=== PATIENT | female | born 2000 | race Caucasian/White ===

== ENCOUNTER 2023-11-06 15:49 | Emergency (ER) | payer OTHER, SELFPAY ==
[2023-11-06 15:58] VITALS: BP 134/81
--- NOTE | 2023-11-06 16:56 | ED.GENMED ---
History of Present Illness
General
Chief Complaint: Jaw Pain
Source: patient
Time Seen by Provider: 11/06/23 16:38
History of Present Illness
History of Present Illness:
23-year-old female with no significant past medical history presenting to the emergency department to be evaluated after she went to urgent care with pain to her left jaw stating it did not feel as if she were able to open it fully and thought that
it might be dislocated. Patient states that she merely just woke up with the pain and cannot think of anything that may have precipitated the pain. Patient states that while at the urgent care they did try and put the jaw back into place but were
concerned that she was still dislocated so sent her to the ER for further evaluation. Patient does note that she has had left-sided jaw pain intermittently for a while but has never followed up with anybody for this as it is often times resolved
after a day or so.
Past History
Past History
ED Past Medical History: None
ED Past Surgical History: None
Social History
Tobacco: Non-smoker
Alcohol: None
Drug: None
Personal: Single
Living: with family
Review of Systems
Review of Systems
All Other Systems: ROS reviewed and negative except as documented in HPI and ROS
Phy Exam
Physical Exam
Physical Exam:
GENERAL: Alert , in no apparent distress
EYE: conjunctiva clear
Head: Normocephalic atraumatic
NECK: Supple,
ENT: mmm. Patient is able to open and close jaw as well as move jaw [id number] without much difficulty. She is able to hold a tongue depressor with her mouth closed and not allow me to pull the tongue depressor out. No deformities at the TMJ
noted. No lymphadenopathy. Good dentition overall, no dental caries or disruption to the enamel
LUNGS: no acute respiratory distress
NEUROLOGICAL: Alert and oriented
SKIN: Warm and dry, skin intact.
MUSCULOSKELETAL: well perfused.
PSYCH: Normal and appropriate interaction.
Scores
Heart Failure Risk
Heart Failure Risk Score: Not Applicable
Heart Score for Chest Pain Patients
STEMI patient?: Not applicable
Withdrawal Assessment of Alcohol
Withdrawal Assessment Completed?: Not applicable
Course
Vital Signs
Initial and Last Documented VS:
Initial Vital Signs
Temp Pulse Resp BP Pulse Ox
98.4 F 85 18 134/81 100
11/06/23 15:58 11/06/23 15:58 11/06/23 15:58 11/06/23 15:58 11/06/23 15:58
Last Documented Vital Signs
Temp Pulse Resp BP Pulse Ox
98.4 F 85 18 134/81 100
11/06/23 15:58 11/06/23 15:58 11/06/23 15:58 11/06/23 15:58 11/06/23 15:58
MDM/Problems Addressed
Differential Diagnosis Includes:
Masseter muscle strain, jaw subluxation, jaw dislocation, dental abscess
MDM/Problems Addressed:
23-year-old female presenting to the ER with left-sided jaw pain upon awakening, felt as if she were unable to open the left side of her mouth, went to urgent care who felt patient could potentially have a jaw dislocation which is why they sent the
patient to the ER. Based off examination I do not have concern for dislocation but discussed with patient and mother that if is possible that the maneuvers they did at urgent care may have reduced the dislocation or subluxation if in fact this were
present. I suspect patient's continued symptoms likely caused a masseter muscle strain which is the cause for patient's continued symptoms. Advised NSAIDs as needed for pain. Since this has been a somewhat ongoing issue I also advised patient to
follow-up with dentist. I also advised to avoid any heavy or to chew proteins or anything that would require the patient to open her jaw significantly. Stable for discharge home.
*Pulse Oximetry
Patient hypoxic: no
*Critical Care Note
Total Time (30-74mins, 75-104mins- exclusive of procedures): Not Applicable
ED Attending Note
-
Portions of this chart may have been created with voice recognition software.� Occasional wrong word or��sound alike� substitutions may have occurred due to the inherent limitations of voice recognition software.
Discharge Plan
Departure
Patient Disposition: Home (Routine Discharge)
Date of Disposition: 11/06/23
Time of Disposition: 16:57
Patient with high blood pressure during this ER visit?: No
Discharge Problem:
Jaw pain
Instructions: Temporomandibular Joint (TMJ) Disorders (DC)
Interventions
Interventions:
*Risk Screen - Suicide Last Done: 11/06/23 15:58
*General Assessment Last Done: 11/06/23 15:58
*ED COVID-19 Vaccine History Last Done: 11/06/23 15:58
Discharge Date and Time
Print Language: BRAZILIAN
== END 2023-11-06 17:00 | disposition home or self-care (01) ==
LOC: EMR 15:49
PROVIDERS: EMERGENCY PHYSICIAN Emergency Medicine; FAMILY PHYSICIAN Family Medicine
DX: R68.84 Jaw pain (principal)
CPT/HCPCS: 99282